=== PATIENT | male | born 1950 | race Caucasian/White ===

== ENCOUNTER 2017-01-09 16:46 | Emergency (ER) | payer MEDICARE, OTHER ==
[2017-01-09] MEDS ORDERED: diazePAM 5 MG TAB PO ONE (17:21)
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
[2017-01-09] MEDS ORDERED: ONDANSETRON ODT 8 MG TAB SL SCH (17:30)
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
[2017-01-09] MEDS ORDERED: MORPHINE SULFATE INJ 10 MG/ML VIAL IM ONE (18:23)
[2017-01-09] MEDS ORDERED: HYDROcodone 10MG/APAP 325MG 1 EA TAB PO ONE (19:34)
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
--- NOTE | 2017-01-09 19:43 | RAD ---
Ankle x-ray two-view DATE: 01/09/2017 INDICATION: Post splinting COMPARISON: Earlier ankle x-ray TECHNIQUE: AP and lateral radiograph of the left ankle was obtained. FINDINGS: Interval splinting of the left ankle with presence of overlying cast. Redemonstrated is a minimally displaced fracture of the left distal fibula with 5 mm distraction of the posterior fracture fragment, unchanged. There is persistent diastases of the left ankle mortise measuring 8 mm, previously 9 mm. Diffuse soft tissue swelling. IMPRESSION: Interval splinting of mildly displaced left distal fibular fracture and left ankle mortise diastasis. Electronically signed by: Ruperto Neff MD 01/09/2017 7:43 PM CDT
[2017-01-09 20:27] VITALS: BP 138/91; TEMP 97.8; O2SAT 95
== END 2017-01-09 20:20 | disposition home or self-care (01) ==
LOC: ER 16:46
DX: S82.822A Torus fracture of lower end of left fibula, initial encounter for closed fracture (principal); V86.59XA Driver of other special all-terrain or other off-road motor vehicle injured in nontraffic accident, initial encounter; Y92.9 Unspecified place or not applicable; Z79.82 Long term (current) use of aspirin; Z79.899 Other long term (current) drug therapy
CPT/HCPCS: 73551; 73560; 73600; 73610; J2270

== ENCOUNTER 2019-09-14 15:40 | Emergency (ER) | payer OTHER ==
[2019-09-14] MEDS ORDERED: LIDOCAINE 1% W/ EPINEPHRINE 20 ML VIAL INJ ONE (15:54)
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
[2019-09-14] MEDS ORDERED: IBUPROFEN 200 MG TAB PO ONE (17:20)
[2019-09-14] MEDS ORDERED: METHOCARBAMOL 750 MG TAB PO ONE (17:20)
[2019-09-14 17:36] VITALS: BP 133/84; TEMP 98.2; O2SAT 98
== END 2019-09-14 17:18 | disposition home or self-care (01) ==
LOC: ER 15:40
DX: S01.01XA Laceration without foreign body of scalp, initial encounter (principal); I10 Essential (primary) hypertension; Z79.82 Long term (current) use of aspirin; Z79.899 Other long term (current) drug therapy; W45.8XXA Other foreign body or object entering through skin, initial encounter; Y99.0 Civilian activity done for income or pay; Y92.79 Other farm location as the place of occurrence of the external cause